=== PATIENT | male | born 1935 | race Caucasian/White ===

== ENCOUNTER 2021-09-25 06:12 | Inpatient (IN) ==
[2021-09-25] MEDS ORDERED: Melatonin 3 MG TABLET PO PRN (10:37)
[2021-09-25] MEDS ORDERED: Naloxone 0.4 MG/ML INJ IVP PRN (10:37)
[2021-09-25] MEDS ORDERED: Mag Hydrox/Al Hydrox/Simeth 30 ML UDC PO PRN (10:37)
[2021-09-25] MEDS ORDERED: MOM Conc 10 ML UD.LIQ PO PRN (10:37)
[2021-09-25] MEDS ORDERED: Ondansetron 4 MG/2 ML VIAL IVP PRN (10:37)
[2021-09-25] MEDS: *HR* HYDROmorphone (PF) 1 MG/ML SYRINGE IVP PRN ×3 (11:30→22:24)
[2021-09-25] MEDS ORDERED: Perflutren Lipid Microsphere 1.3 ML in 0.9 % Sodium Chloride 8.7 ML IVP PRN (15:44)
[2021-09-26 03:00] LABS: Hematocrit 36.3 % (37.5-50.1); Hemoglobin 12.1 g/dL (12.9-16.9); Mean Corpuscular HGB Conc 33.3 g/dL (31.6-35.5); Mean Corpuscular Hemoglobin 31.1 pg (28.0-33.3); Mean Corpuscular Volume 93.3 fL (83.0-100.0); Mean Platelet Volume 10.7 fL (9.4-12.4); Platelet Count 168 K/mcL (140-400); Red Blood Count 3.89 M/mcL (4.19-5.50); Red Cell Distribution Width 13.8 % (11.5-14.5); White Blood Count 9.4 K/mcL (4.3-11.1)
[2021-09-26 03:06] LABS: INR 1.2; Prothrombin Time 13.8 Seconds (9.4-12.1)
[2021-09-26 03:17] LABS: BUN/Creatinine Ratio 17 (6-26); Blood Urea Nitrogen 22 mg/dL (8-23); Calcium 9.1 mg/dL (8.6-10.3); Carbon Dioxide 30 mEq/L (23-29); Chloride 103 mEq/L (98-107); Glucose 141 mg/dL (70-105); Magnesium 1.8 mg/dL (1.6-2.6); Osmolality,Calculated 292 (280-300); Potassium 4.7 mEq/L (3.5-5.1); Sodium 138 mEq/L (136-145); eGFR For African Americans > 60 (> 60); eGFR For Non-African Americans 52 (> 60)
[2021-09-26] MEDS: *HR* HYDROmorphone (PF) 1 MG/ML SYRINGE IVP PRN (03:28)
[2021-09-26] MEDS ORDERED: Acetaminophen IV 1,000 MG/100 ML BAG IVPB ONE (06:56)
[2021-09-26] MEDS ORDERED: Famotidine 20 MG/2 ML VIAL IVP ONE (06:56)
[2021-09-26] MEDS ORDERED: *HR* Propofol 200 MG/20 ML VIAL IVP ONE (06:59)
[2021-09-26] MEDS ORDERED: Ondansetron 4 MG/2 ML VIAL IVP PRN (07:00)
[2021-09-26] MEDS ORDERED: Morphine Sulfate 2 MG/ML SYRINGE IVP PRN (07:00)
[2021-09-26] MEDS ORDERED: *HR* Succinylcholine 200 MG/10 ML VIAL IVP ONE (07:00)
[2021-09-26] MEDS ORDERED: *HR* FentaNYL (PF) 100 MCG/2 ML VIAL ONE (07:00)
[2021-09-26] MEDS ORDERED: Lidocaine -MPF 2% 5 ML VIAL ONE (07:00)
[2021-09-26] MEDS ORDERED: *HR* Vasopressin 20 UNIT/ML VIAL ONE (07:20)
[2021-09-26] MEDS ORDERED: *HR* HYDROmorphone PF 0.5 MG/0.5 ML SYRINGE IVP PRN (07:30)
[2021-09-26] MEDS ORDERED: 0.9 % Sodium Chloride 1,000 ML IVC SCH (07:45)
[2021-09-26] MEDS ORDERED: *HR* HYDROMORPHONE 2 MG/ML VIAL ONE (08:56)
[2021-09-26] MEDS ORDERED: *HR* HYDROcodone/Acet 5/325 mg TABLET PO PRN (09:31)
[2021-09-26] MEDS: *HR* OxyCODONE Immed Rel 5 MG TABLET PO PRN (11:17)
[2021-09-26 12:13] LABS: Hematocrit 37.4 % (37.5-50.1); Hemoglobin 12.3 g/dL (12.9-16.9)
[2021-09-26] MEDS ORDERED: Loratadine 10 MG TABLET PO PRN (13:13)
[2021-09-26] MEDS ORDERED: Ipratropium 1 PUFF INHALER IH PRN (13:19)
[2021-09-26] MEDS: CeFAZolin 2 GM/120 ML BAG IVPB SCH ×2 (16:01→23:20)
[2021-09-26] MEDS: Latanoprost 2.5 ML BOTTLE BOTH EYES SCH (19:32)
[2021-09-26] MEDS: Sennosides/Docusate Sodium TABLET PO PRN (21:50)
[2021-09-27] MEDS: Acetaminophen 325 MG TABLET PO PRN ×2 (03:57→16:20)
[2021-09-27 06:02] LABS: Basophils % 0.2 %; Immature Granulocytes % 0.5 % (0-4); Lymphocytes # 0.8 K/mcL (0.6-4.6); Lymphocytes % 8.7 %; Mean Corpuscular HGB Conc 33.4 g/dL (31.6-35.5); Mean Corpuscular Hemoglobin 31.3 pg (28.0-33.3); Mean Corpuscular Volume 93.6 fL (83.0-100.0); Mean Platelet Volume 11.1 fL (9.4-12.4); Monocytes # 1.2 K/mcL (0.0-1.3); Neutrophils # 7.6 K/mcL (1.6-8.9); Platelet Count 143 K/mcL (140-400); Red Blood Count 3.42 M/mcL (4.19-5.50); Red Cell Distribution Width 13.9 % (11.5-14.5); Segmented Neutrophils % 78.6 %; White Blood Count 9.7 K/mcL (4.3-11.1)
[2021-09-27 06:07] LABS: Hemoglobin 10.7 g/dL (12.9-16.9)
[2021-09-27 06:12] LABS: BUN/Creatinine Ratio 20 (6-26); Blood Urea Nitrogen 22 mg/dL (8-23); Calcium 8.6 mg/dL (8.6-10.3); Carbon Dioxide 23 mEq/L (23-29); Chloride 105 mEq/L (98-107); Glucose 115 mg/dL (70-105); Osmolality,Calculated 288 (280-300); Sodium 137 mEq/L (136-145); eGFR For African Americans > 60 (> 60); eGFR For Non-African Americans > 60 (> 60)
[2021-09-27] MEDS: Ascorbic Acid 500 MG TABLET PO SCH (08:51)
[2021-09-27] MEDS: Apixaban 5 MG TABLET PO SCH ×2 (08:51→20:12)
[2021-09-27] MEDS: Sennosides/Docusate Sodium TABLET PO PRN (08:51)
[2021-09-27] MEDS: Aspirin Enteric Coated 81 MG Tablet PO SCH (08:51)
[2021-09-27] MEDS: amLODIPine 5 MG TABLET PO SCH (08:51)
[2021-09-27] MEDS: Latanoprost 2.5 ML BOTTLE BOTH EYES SCH (20:12)
[2021-09-28] MEDS: *HR* OxyCODONE Immed Rel 5 MG TABLET PO PRN ×3 (01:10→18:17)
[2021-09-28 04:25] LABS: Hemoglobin 9.8 g/dL (12.9-16.9); Red Cell Distribution Width 13.8 % (11.5-14.5)
[2021-09-28 04:27] LABS: Basophils % 0.2 %; Eosinophils # 0.2 K/mcL (0.0-0.6); Eosinophils % 2.2 %; Hematocrit 28.9 % (37.5-50.1); Immature Granulocytes % 0.4 % (0-4); Immature Platelets 7.1 % (1.1-6.1); Lymphocytes % 12.2 %; Mean Corpuscular HGB Conc 33.9 g/dL (31.6-35.5); Mean Corpuscular Hemoglobin 31.3 pg (28.0-33.3); Mean Corpuscular Volume 92.3 fL (83.0-100.0); Mean Platelet Volume 11.2 fL (9.4-12.4); Monocytes # 0.8 K/mcL (0.0-1.3); Platelet Count 141 K/mcL (140-400); Red Blood Count 3.13 M/mcL (4.19-5.50); White Blood Count 8.1 K/mcL (4.3-11.1)
[2021-09-28 04:47] LABS: Neutrophils # 6.1 K/mcL (1.6-8.9)
[2021-09-28 04:48] LABS: Platelet Estimate Normal (Normal)
[2021-09-28] MEDS: Aspirin Enteric Coated 81 MG Tablet PO SCH (07:59)
[2021-09-28] MEDS: Apixaban 5 MG TABLET PO SCH ×2 (07:59→19:48)
[2021-09-28] MEDS: amLODIPine 5 MG TABLET PO SCH (08:00)
[2021-09-28] MEDS: Ascorbic Acid 500 MG TABLET PO SCH (08:00)
[2021-09-28] MEDS: Latanoprost 2.5 ML BOTTLE BOTH EYES SCH (19:48)
[2021-09-29] MEDS: *HR* OxyCODONE Immed Rel 5 MG TABLET PO PRN ×3 (06:21→17:42)
[2021-09-29] MEDS: Sennosides/Docusate Sodium TABLET PO PRN (06:21)
[2021-09-29 07:45] LABS: Hematocrit 28.4 % (37.5-50.1); Hemoglobin 9.6 g/dL (12.9-16.9)
[2021-09-29] MEDS: amLODIPine 5 MG TABLET PO SCH (08:05)
[2021-09-29] MEDS: Ascorbic Acid 500 MG TABLET PO SCH (08:05)
[2021-09-29] MEDS: Aspirin Enteric Coated 81 MG Tablet PO SCH (08:05)
[2021-09-29] MEDS: Apixaban 5 MG TABLET PO SCH ×2 (08:05→20:00)
[2021-09-29] MEDS: Latanoprost 2.5 ML BOTTLE BOTH EYES SCH (20:00)
[2021-09-30 05:04] LABS: Hematocrit 27.6 % (37.5-50.1); Hemoglobin 9.1 g/dL (12.9-16.9)
[2021-09-30] MEDS: *HR* OxyCODONE Immed Rel 5 MG TABLET PO PRN ×2 (05:05→10:03)
[2021-09-30] MEDS: Apixaban 5 MG TABLET PO SCH (08:11)
[2021-09-30] MEDS: Aspirin Enteric Coated 81 MG Tablet PO SCH (08:11)
[2021-09-30] MEDS: Ascorbic Acid 500 MG TABLET PO SCH (08:11)
[2021-09-30] MEDS: amLODIPine 5 MG TABLET PO SCH (08:11)
[2021-09-30] MEDS ORDERED: Bisacodyl 10 MG RECTAL SUPPOSITORY RC ONE ×2 (09:52→15:30)
[2021-09-30 11:13] VITALS: O2SAT 95
[2021-09-30 11:24] LABS: Hematocrit 29.9 % (37.5-50.1); Hemoglobin 10.1 g/dL (12.9-16.9)
[2021-09-30 14:36] VITALS: BP 101/59; PULSE 68; TEMP 100.3
[2021-09-30 14:47] LABS: Influenza A PCR Negative (Negative); Influenza B PCR Negative (Negative); Resp. Syncytial Virus PCR Negative (Negative)
[2021-09-30 14:50] LABS: SARS-CoV-2 by PCR (In House) Negative (Negative)
== END 2021-09-30 17:15 | DRG 481 ==
LOC: 4WAOSI → SUATTDRO 10:36
PROVIDERS: ADMIT Internal Medicine; ATTEND Family Medicine